=== PATIENT | male | born 1990 | race Caucasian/White ===

== ENCOUNTER 2016-12-14 21:02 | Emergency (ER) | payer BC, OTHER ==
[2016-12-14 21:46] VITALS: RESP 16; TEMP 99
--- NOTE | 2016-12-15 02:12 | PDOC ---
Foot / Ankle Injury - General Chief Complaint: Lower Extremity Problem/Injury Stated Complaint: Right ankle injury/swelling Date Seen by Provider: 12/07/16 Time Seen by Provider: 21:30 Source: POSITIVE: Patient Exam Limitations: POSITIVE: No limitations Nurse's Notes Reviewed & Considered: Yes - History of Present Illness Initial Comments: The patient is a 26-year-old male. Approximately 5 hours IT INTERN he was skateboarding and he fell off his skateboard, injuring his right ankle. He states he's not been able to bear weight on his right lower extremity since the accident. He denies any head chest back or any other injuries. Patient states he's had back surgery in the past. He states he is on no medications and is allergic to penicillin. No paresthesia. No definite sensory or motor symptoms. Have you received a tetanus shot in the past 10 years?: Unknown Location: Right Ankle Timing: REPORTS: Abrupt Duration: 4-6 hours (5 hours IT INTERN) Severity: Moderate Quality: REPORTS: "Pain" Context: REPORTS: Fall, Twist, Wearing Shoes Modifying Factors: REPORTS: Movement, Other (trying to bear weight) Associated Symptoms: DENIES: Tingling Distally, Numbness Distally, Swelling, Snapping Sensation, Popping Sensation, Other Any Prior Injuries Related to Current Complaint?: No - Patient Allergies Allergies/Adverse Reactions: Allergies Allergy/AdvReac Type Severity Reaction Status Date / Time Penicillins Allergy Unknown HIVES Verified 12/14/16 21:09 - Patient Home Medications Home Medications: Home Medications Dexlansoprazole [Dexilant] 60 mg PO DAILY #30 cap 09/27/16 Past Medical History - heen HEENT History: Denies History Cardiovascular History: Denies History Respiratory History: Denies History Gastrointestinal History: Peptic Ulcer Disease Genitourinary History: Denies History Endocrine History: Denies History Musculoskeletal History: Other (please comment) Prosthesis or Implant: No Additional Musculoskeletal History: back surgery Neurological History: Denies History Blood Disorders: Denies History Psychiatric History: Denies History Cancer History: Denies History In Past Year Been Physically Harmed or Verbally Threatened: No History of MDRO: No Tobacco Use: Never Smoker Alcohol Use: Occasionally Substance Use Type: None Previous Surgical History: Yes Type / Date of Surgery: back surgery Significant Family History: No pertinent family hx Past Medical History Reviewed: Reviewed - No Changes ROS - Limitations ROS Limitations: No Limitations Constitution: REPORTS: Denies Symptoms Cardiovascular: REPORTS: Denies Cardiac Symptoms Respiratory: REPORTS: Denies Resp Symptoms Neurological: REPORTS: Denies Neuro Symptoms Gastrointestinal: REPORTS: Denies GI Symptoms Endocrine: REPORTS: Denies Symptoms Musculoskeletal: REPORTS: Joint Pain (Right ankle pain and swelling over the lateral aspect of the right ankle), Recent Injury (As above) Genitourinary: REPORTS: Denies Symptoms Eyes: REPORTS: Denies Symptoms ENT: REPORTS: Denies Symptoms Skin: REPORTS: Denies Skin Symptoms Lympathic: REPORTS: Denies Lympathic Symptoms Immunologic: POSITIVE: Denies Symptoms Psychiatric: POSITIVE: Denies Psych Symptoms Foot / Ankle Exam - General Appearance General Appearance: POSITIVE: Alert, Cooperative, No Acute Distress. NEGATIVE: No Evidence of Trauma - Extremities Foot: POSITIVE: Normal Inspection, Non-Tender Ankle: POSITIVE: Stable, Soft-Tissue Tenderness, Bony Tenderness, Swelling ( lateral aspect of ankle), See Diagram Gait: POSITIVE: Gait not Tested d/t Pain Neuro: POSITIVE: Sensation Normal, Motor Normal Vascular: POSITIVE: No Vascular Compromise, Full Pulses, Equal Pulses Tendons: POSITIVE: Tendon Function Normal Skin: POSITIVE: Warm, Dry - Neck / Back Neck / Back: Normal Inspection - Respiratory / CVS Respiratory / CVS: POSITIVE: Chest Non-Tender, No Respiratory Distress, Heart Sounds Normal, Regular Rate/Rhythm, Breath Sounds Normal Peripheral Pulses: Radial (R): 2+, Radial (L): 2+, Dorsalis-pedis (R): 2+, Dorsalis-pedis (L): 2+ Images - Lower Extremities Lower Extremities: 1 - Swelling and tenderness on palpation Procedures - Splinting Time Splint Applied: 21:55 Location: right ankle; sugar aysha Pre-Proc Neuro Vasc Exam: Normal Splint Type: Ortho-Glass, Crutches Splint Form: Short Extremity (Sugar tong) Applied By:: Termite Control Servicer, Nurse Post-Proc Neuro Vasc Exam: Normal Foot / Ankle Progress - Results Reviewed by me Pain Medication Addressed: POSITIVE: Yes (recommended Tylenol or Advil), Patient Refused School/Work Release Addressed: POSITIVE: Yes Xrays/CTs/US Reviewed by me: Yes Discussed with Radiologist: No Radiology Results: POSITIVE: Right, Ankle Radiology Findings: Slightly displaced fracture of right lateral malleolus - Patient's Progress Re-Examine Time:: 22:10 Re-Examine Comment: Good relief of discomfort with splinting. Diagnosis discussed with patient. Patient to follow-up in orthopedics Friday or Friday. Status: POSITIVE: Improved, Re-Examined - Consult Counseled: POSITIVE: Patient, RE: Radiology Results, RE: DX, RE: Need for F/U Patient Care Time - Estimated PCT Patient Care Time (In Minutes): 30 Vital Signs - Recent Vital Signs Vital Signs: Vital Signs (Last 8 hours) Temp Pulse Resp BP Pulse Ox 12/14/16 21:05 99.0 F 62 16 120/75 95 - VS Reviewed Vital Signs Reviewed: Yes Discharge Clinical Impression: Fracture, ankle Discharge Disposition: Discharged to Home Condition: Stable Patient Instructions Given at Discharge: Ankle Fracture (ED) Additional Instructions: You have sustained a fracture to your right ankle. Please wear the splint which was placed on your ankle in the emergency room. Do not remove it. Use crutches and bear no weight on your right leg. No work until cleared by orthopedist. Follow-up in orthopedics Friday or Friday. Elevate leg. Cool compresses. Advil or Tylenol for discomfort. Return here anytime if condition worsens. Follow Up With: ABDULLAHI GROVER FNP [Primary Care Provider] - (Instructions as above. Follow- up in orthopedics Friday or Friday. Return here anytime if condition worsens in any way.)
--- NOTE | 2016-12-15 14:33 | DI ---
RIGHT ANKLE, 12/14/2016 9:10 PM: Clinical History: Injury. Previous Exam: None at this facility. 3 views are submitted. There is a nondisplaced fracture of the lateral malleolus. The ankle mortise i s intact. There is substantial soft tissue swelling over the lateral malleolus. Reading: Nondisplaced fracture of the lateral malleolus.
== END 2016-12-14 22:26 | disposition home or self-care (01) ==
LOC: ER 21:02
DX: S82.64XA Nondisplaced fracture of lateral malleolus of right fibula, initial encounter for closed fracture (principal); V00.131A Fall from skateboard, initial encounter
CPT/HCPCS: 29515; 73610; 99282

== ENCOUNTER → 2016-12-19 | Outpatient (CLI) | payer BC, OTHER ==
--- NOTE | 2016-12-19 14:51 | DI ---
RIGHT ANKLE, 12/19/2016 2:07 PM: Clinical History: Closed displaced fracture of the lateral malleolus with routine healing. Previous Exam: 12/14/2016. 3 views are submitted. The soft tissue swelling over the lateral malleolus has decreased but there is swelling over the dorsolateral aspect of the foot. The fracture of the lateral malleolus is again id entified with no change in alignment and position. The ankle mortise is intact. Reading: No change in the appearance and position of the fracture of the lateral malleolus.
== END ==
LOC: ORTHO 14:15
PROVIDERS: ATTEND Orthopaedic Surgery
DX: S82.61XD Displaced fracture of lateral malleolus of right fibula, subsequent encounter for closed fracture with routine healing (principal)
CPT/HCPCS: 73610

== ENCOUNTER 2016-12-20 10:04 | Day surgery (SDC) | payer BC, OTHER ==
[~2016-12-20 10:04] MED LIST: Clindamycin 900mg (Premix) 50 ML IV ONE; LIDOCAINE W/ SODIUM BICARB 0.5 ML SYR ONE; Lactated Ringers 1,000 ML PRIMARY IV ONE
[2016-12-20] MEDS ORDERED: BACITRACIN 50,000 UNIT VIAL IRRIG ONE (11:08)
[2016-12-20] MEDS ORDERED: Sodium Chloride 0.9% vial 10 ML ONE (11:08)
[2016-12-20] MEDS ORDERED: fentaNYL Inj 100 MCG/2 ML VIAL ONE (11:21)
[2016-12-20] MEDS ORDERED: MIDAZOLAM 5 MG/1 ML ONE (11:21)
--- NOTE | 2016-12-20 11:59 | CRNA.PROCE ---
Central Neuraxis Block Placeoh - - Safety Measures: Time Out Taken, Site Verified - - Type of Block: Subarachnoid Reason for Block: Surgical Moniters Used During Block: EKG, SPO2, NIBP Sedation Used - Enter Amount Used in Comment Field: Midazolam (mg): Yes (3mg iv) , Fentanyl (mcg): Yes (80mcg iv) Positioning: Lateral (Right Lat Decub) Skin Prep Used: Betadine Draped: Yes Skin Infiltration - Enter Amount Used in Comment Field: 1% Xylocaine (mL): Yes ( skin wheal) Introducer User: 18 Gauge Laguo Spinal Needle Used: 25 Licha 80 mm Local Anesthetic - Enter Amount Used in Comment Field: 0.75 % Bupivacaine with Dextrose (ml): Yes (10mg) Additive Used - Enter Amount Used in Comment Field: Fentanyl (mcg): Yes (20mcg)
[2016-12-20] MEDS ORDERED: BUPivacaine Liposome/PF (Exparel) Inj 20ml vial INFIL ONE (12:22)
[2016-12-20] MEDS ORDERED: diphenhydrAMINE 25 MG CAPSULE PO PRN (13:49)
[2016-12-20] MEDS ORDERED: IBUPROFEN 400 MG TABLET PO PRN (13:49)
[2016-12-20] MEDS ORDERED: BISACODYL 10 MG SUPPOSITORY RECTAL PRN (13:49)
[2016-12-20] MEDS ORDERED: Ondansetron ODT Tab 8 MG TAB PO PRN (13:49)
[2016-12-20] MEDS ORDERED: ONDANSETRON 4 MG/2 ML VIAL IVP PRN (13:49)
[2016-12-20] MEDS ORDERED: CALCIUM CARBONATE 500 MG (TUMS) CHEWABLE TABLET PO PRN (13:49)
[2016-12-20] MEDS ORDERED: MORPHINE SULFATE 2 MG/1 ML IVP PRN (13:49)
[2016-12-20] MEDS ORDERED: NORMAL SALINE 10 ML SYRINGE FLUSH IVP PRN (13:49)
[2016-12-20] MEDS ORDERED: ACETAMINOPHEN 325 MG TABLET PO PRN (13:49)
[2016-12-20] MEDS ORDERED: MAG HYDROX/AL HYDROX/SIMETH 30 ML SUSP PO PRN (13:49)
[2016-12-20] MEDS ORDERED: Prochlorperazine Tab 10 MG TAB PO PRN (13:49)
[2016-12-20] MEDS ORDERED: BISACODYL 5 MG TABLET PO PRN (13:49)
[2016-12-20] MEDS ORDERED: HYDROcodone-APAP 7.5 MG-325 MG TABLET PO PRN (13:49)
[2016-12-20] MEDS ORDERED: Lactated Ringers 1,000 ML PRIMARY IV SCH (14:00)
[2016-12-20 14:56] VITALS: RESP 12; TEMP 97.5
== END 2016-12-20 15:05 | disposition home or self-care (01) ==
LOC: SDSC 10:04
PROVIDERS: ATTEND Orthopaedic Surgery
DX: S82.61XA Displaced fracture of lateral malleolus of right fibula, initial encounter for closed fracture (principal)
CPT/HCPCS: 27792; 76001; 87641; A4216; C9290; J2704; J3010; J2250; J3490; J7120

== ENCOUNTER 2016-12-29 12:05 | Emergency (ER) | payer BC, OTHER ==
[2016-12-29] MEDS ORDERED: NORMAL SALINE 10 ML SYRINGE FLUSH IVP PRN (12:14)
[2016-12-29] MEDS ORDERED: KETOROLAC 15 MG/1 ML VIAL IVP ONE (12:15)
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
[2016-12-29 12:34] LABS: BASOPHILS # (AUTO) 0.06 10*3/UL; BASOPHILS % (AUTO) 0.8 % (0-1); EOSINOPHILS # (AUTO) 0.26 10*3/UL; EOSINOPHILS % (AUTO) 3.4 % (0-8); HEMATOCRIT 47.7 % (42.0-52.0); HEMOGLOBIN 16.1 g/dL (14.0-18.0); LYMPHOCYTES # (AUTO) 1.44 10*3/uL; MEAN CORPUSCULAR HEMOGLOBIN 28.4 PG (27-31); MEAN CORPUSCULAR HGB CONC 33.8 g/dL (33-37); MEAN CORPUSCULAR VOLUME 84.3 FL (80-90); MEAN PLATELET VOLUME 9.1 FL (7.4-12.2); MONOCYTES # (AUTO) 0.61 10*3/UL (0.3-0.8); MONOCYTES % (AUTO) 8.1 % (5-15); NEUTROPHILS # (AUTO) 5.16 10*3/UL; NEUTROPHILS % (AUTO) 68.3 % (50-80); RED BLOOD COUNT 5.66 10^6/uL (4.70-6.10)
[2016-12-29 12:35] LABS: PLATELET MORPHOLOGY COMMENT NORMAL MORPHOLOGY (NORM); RBC MORPHOLOGY COMMENT NORMAL MORPHOLOGY (NORM); WBC MORPHOLOGY COMMENT NORMAL MORPHOLOGY (NORM)
[2016-12-29 12:40] VITALS: RESP 18; TEMP 98.5
[2016-12-29 12:46] LABS: BLOOD UREA NITROGEN 16 mg/dL (7-22); BUN/CREATININE RATIO 17.77 (6-20); C-REACTIVE PROTEIN 1.6 mg/dL (0.0-0.9); CALCIUM 9.8 mg/dL (8.7-10.7); EST GLOMERULAR FILTRATION > 60 (>60 ml/min/1.73m(2)); SERUM ALBUMIN 4.5 g/dL (3.5-4.8)
[2016-12-29 13:49] LABS: ERYTHROCYTE SEDIMENTATION RATE 5 MM/HR (0-15)
== END 2016-12-29 14:15 | disposition home or self-care (01) ==
LOC: ER 12:05
DX: G89.18 Other acute postprocedural pain (principal); R22.41 Localized swelling, mass and lump, right lower limb; M79.671 Pain in right foot
CPT/HCPCS: 36415; 80053; 83605; 84550; 85025; 85652; 86140; 87040; 96374; 99282; 99283; J1885

== ENCOUNTER → 2017-01-20 | Outpatient (CLI) | payer BC, OTHER ==
--- NOTE | 2017-01-20 14:45 | DI ---
RIGHT ANKLE, 01/20/2017 2:14 PM: Clinical History: Closed fracture of the right lateral malleolus with routine healing. Previous Exam: 12/19/2016. 3 views are submitted. Status post ORIF of the fracture of the lateral malleolus with anatomic alignm ent and position. The ankle mortise is intact. A moderate to large joint effusion is present anterior ly and posteriorly. Reading: Status post ORIF of the fracture of the lateral malleolus with anatomic alignment and position.
== END ==
LOC: ORTHO 14:36
PROVIDERS: ATTEND Orthopaedic Surgery
DX: S82.61XE Displaced fracture of lateral malleolus of right fibula, subsequent encounter for open fracture type I or II with routine healing (principal)
CPT/HCPCS: 73610

== ENCOUNTER → 2017-02-03 | Outpatient (CLI) | payer BC, OTHER ==
--- NOTE | 2017-02-04 09:58 | DI ---
XR ANKLE COMPLETE MIN 3VW,02/03/2017 1:42 PM: Clinical History: Right distal fibular fracture. Previous Exam: Jan 20 2017 Findings: 3 views of the right ankle are obtained, and demonstrate screw and plate fixation of the right distal fibula. There is a right knee joint effusion and there is soft tissue swelling over the right lateral malleol us. Impression: No significant change from prior.
== END ==
LOC: ORTHO 13:49
PROVIDERS: ATTEND Orthopaedic Surgery
DX: S82.831D Other fracture of upper and lower end of right fibula, subsequent encounter for closed fracture with routine healing (principal)
CPT/HCPCS: 73610